=== PATIENT | female | born 1995 | race Two or more races ===

== ENCOUNTER 2021-12-26 10:45 | Emergency (ER) | payer OTHER, SELFPAY ==
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
[2021-12-26 12:12] VITALS: BP 126/77; PULSE 56; RESP 16; TEMP 36.6; O2SAT 98; BMI 36.0
== END 2021-12-26 16:55 | disposition left against medical advice (07) ==
PROVIDERS: Emergency Provider Emergency Medicine
DX: S89.92XA Unspecified injury of left lower leg, initial encounter (principal); V49.9XXA Car occupant (driver) (passenger) injured in unspecified traffic accident, initial encounter; Y93.9 Activity, unspecified; Y92.410 Unspecified street and highway as the place of occurrence of the external cause; Y99.9 Unspecified external cause status
CPT/HCPCS: 73564; 99281; 99283

== ENCOUNTER 2022-04-08 08:01 | Emergency (ER) | payer SELFPAY ==
[2022-04-08 08:08] VITALS: BP 130/77; PULSE 78; RESP 18; TEMP 36.7; O2SAT 99; BMI 36.0
--- NOTE | 2022-04-08 09:14 | ED.URI ---
HPI - URI/Sore Throat General Chief Complaint: Upper Respiratory Symptoms Stated Complaint: sinus issue Time Seen by Provider: 04/08/22 09:05 Source: patient Mode of arrival: ambulatory Limitations: no limitations History of Present Illness HPI Narrative: 26-year-old female with no significant past medical history presents emergency department today with complaints of right eyelid swelling, facial pressure, headache, and nasal congestion for the past 2 days. She reports pain is reproducible with palpation of sinuses. She reports her right eye began itching with swelling beginning this morning. She denies any eye pain, changes in vision, redness warmth or drainage from the eye. at She denies any known recent illness, sick contacts, shortness of breath, cough, or chest pain. Onset (ago): day(s) (2) Consistency: constant Severity: moderate Pain scale (0-10): 5 Description of mucous: clear and yellow Able to tolerate fluids by mouth: Yes Exacerbating factors: leaning forward Relieving factors: nothing Associated symptoms: chills Treatments prior to arrival: none Related Data Previous Rx's Medication Instructions Recorded cetirizine 10 mg capsule 10 mg PO DAILY 10 days #10 caps 04/08/22 diphenhydramine HCl 25 mg capsule 25 mg PO BEDTIME PRN allergy 04/08/22 (Benadryl) symptoms #10 caps fluticasone propionate 50 1 spray intranasal DAILY #16 grams 04/08/22 mcg/actuation nasal spray,suspension (Flonase Allergy Relief) Allergies Allergy/AdvReac Type Severity Reaction Status Date / Time No Known Allergies Allergy Verified 12/26/21 12:11 Review of Systems Review of Systems: In addition to documented HPI above, the additional ROS was obtained: Constitutional: No Weight loss, No Fever ENT/Mouth: No Ear Pain, No Hoarseness, No sore throat, No Swallowing Difficulty Cardiovascular: No Chest Pain, No SOB Respiratory: No Cough, No Sputum, No Wheezing Gastrointestinal: No Nausea, No Vomiting, No Diarrhea, No Constipation, No Abdominal pain Musculoskeletal: No joint pain, No Myalgias, No Joint Swelling Skin: No Skin Lesions, No rash Neuro: No Weakness, No Numbness, No Paresthesias Yes all other systems are reviewed and are negative PMFSH Past Medical History Attestation statement: The following information was validated with the patient. Source: old records reviewed Social History Social History Advance Directives: No Advance Directives Information Provided: No Physical Exam Vital Signs: Vital Signs: Last Vital Signs Temp 98.1 F 04/08/22 08:08 Pulse 78 04/08/22 08:08 Resp 18 04/08/22 08:08 BP 130/77 04/08/22 08:08 Pulse Ox 99 04/08/22 08:08 O2 Del Method 04/08/22 08:08 BMI result Body Mass Index 36.0 Const: General: cooperative, alert and awake Nutritional Appearance: well nourished Orientation/consciousness: patient oriented x3 Limitations: no limitations HEENT: Head: Yes normal to inspection and Yes atraumatic Ears: hearing grossly normal bilaterally, TM normal on the left, EAC's normal and TM abnormal with fluid behind the TM on the right General nose exam: Normal external nose present, Normal nares present and No nasal polyps present Face and sinus: Yes sinus tenderness Mouth: Normal oral and palatal mucosa present, tongue normal, no drooling, breath no malodorous and no trismus Teeth and gingiva: dentition normal Throat: Yes posterior oropharynx normal, Yes tonsils normal and Yes uvula midline Eyes: Visual Marquez: normal visual marquez by confrontation Alignment and Position: alignment normal Periorbital: periorbital findings abnormal right periorbital swelling; no erythema and no ecchymosis Eyelids: Yes eyelids normal Conjunctivae: conjunctivae normal Sclerae: scleral abnormal right scleral injection lateral Corneas: corneas normal Pupils: Equal, round and reactive pupils present EOM: EOMs intact bilaterally Neck: Neck: Yes normal visual inspection, Yes full ROM and Yes no lymphadenopathy Chest: Chest palpation & inspection: normal inspection of the chest Resp: Effort & Inspection: normal respiratory effort and not labored Auscultation: clear to auscultation bilaterally, no crackles, no rhonchi and no wheezes Cardio: Rate: regular rate Rhythm: regular rhythm Back/Spine/Pelvis: Cervical Spine: cervical ROM normal Thoracic/Lumbar Spine: thoraco-lumbar ROM normal Skin: General skin exam: no rashes or lesions noted Neuro: General: patient oriented x3, tone normal and moves all extremities Cranial nerves: Yes Equal, round and reactive pupils present Cognition (Neuro): normal cognition Gait exam (Neuro): Normal gait present Motor exam (neuro): 5/5 motor strength present throughout Extrem: General: Yes normal to inspection, Yes full ROM and Yes capillary refill normal Psych: Appearance: grossly normal Speech and movement: Normal speech and movement present Affect: normal affect Attitude: cooperative Thought process: Normal thought process present Thought content: Normal thought content present Insight: Good insight present (Psych) Judgement: Good judgement present (Psych) Course Course Course Narrative: flonase, zyrtec, benadryl at night Medical Decision Making Medical Decision Making MDM Narrative: 26-year-old female with no significant past medical history presents emergency department today with complaints of right eyelid swelling, facial pressure, headache, and nasal congestion for the past 2 days. Physical exam and HPI consistent with rhinosinusitis. Pt educated that antibiotics are not needed at this time as rhinosinusitis symptoms typically improve or resolve within 10 days. Cetirizine, Flonase, and Benadryl recommended for treatment of rhinosinusitis. Educated to return to the emergency department with worsening periorbital swelling, redness, drainage, or warmth of the eyelid, ear pain or drainage, or symptoms do not improve within 10 days. HPI, PE, and plan discussed with patient with no unanswered questions at this time. Recommended follow-up care primary care provider for further treatment and management Discharge Plan Discharge Clinical Impression: Rhinosinusitis Patient Disposition: Home, Self-Care Instructions: Rhinosinusitis (ED), How to Use Nasal [place] (ED) Additional Instructions: You have rhinosinusitis. Treatment for rhinosinusitis is oral decongestants, nasal steroids, and benadryl as needed at night. You may use [id number] Tylenol and/or Motrin for treatment of fever and discomfort. Please return to the emergency department for fever despite use of Tylenol and/or Motrin, worsening sinus pressure, increased swelling, redness, or heat in your eyelids, or any other emergent concerning symptoms. Recommended follow-up with the primary care for further treatment and management. Prescriptions: New cetirizine 10 mg capsule 10 mg PO DAILY 10 Days Qty: 10 0RF fluticasone propionate [Flonase Allergy Relief] 50 mcg/actuation spray,suspension 1 spray intranasal DAILY Qty: 16 0RF Rx Instructions: administer into each nostril diphenhydramine HCl [Benadryl] 25 mg capsule 25 mg PO BEDTIME PRN (Reason: allergy symptoms) Qty: 10 0RF Referrals: [facility] Family Medicine [Provider Group] [facility] Primary CareEric [Provider Group] [facility] Primary [facility] [Provider Group] Stand Alone Forms: Work/School Release Discharge Date/Time: 04/08/22 09:35 Print Language: Kazakh
== END 2022-04-08 09:35 | disposition home or self-care (01) ==
PROVIDERS: Emergency Provider Emergency Medicine
DX: J32.9 Chronic sinusitis, unspecified (principal)
CPT/HCPCS: 99281